=== PATIENT | female | born 1985 | race Caucasian/White ===

== ENCOUNTER 2017-01-16 19:58 | Emergency (ER) | payer OTHER ==
[~2017-01-16] VITALS: Ht 165.1 cm; Wt 60.7 kg
[2017-01-16 20:02] VITALS: BP 130/98
== END 2017-01-16 21:22 | disposition home or self-care (01) ==
LOC: EXP 19:58 → EME 19:58 → EXP 21:22
PROC: 3E0234Z Introduction of Serum, Toxoid and Vaccine into Muscle, Percutaneous Approach (ICD-10-PCS; principal; 2017-01-16)
DX: S80.871D Other superficial bite, right lower leg, subsequent encounter (principal); W64.XXXD Exposure to other animate mechanical forces, subsequent encounter; Z20.3 Contact with and (suspected) exposure to rabies; Z23 Encounter for immunization
CPT/HCPCS: 99281; 99284